=== PATIENT | female | born 1995 | race African-American/Black ===

== ENCOUNTER 2018-06-09 12:35 | Emergency (ER) | payer SELFPAY ==
[2018-06-09 13:14] VITALS: BP 124/71
[2018-06-09 15:16] LABS: APPEARANCE,URINE SLIGHTLY-CLOUDY; BILIRUBIN,URINE NEGATIVE (NEGATIVE); COLOR,URINE YELLOW; GLUCOSE, URINE NEGATIVE (NEGATIVE); KETONES,URINE NEGATIVE (NEGATIVE); LEUKOCYTE ESTERASE,URINE NEGATIVE (NEGATIVE); NITRITE,URINE NEGATIVE (NEGATIVE); PROTEIN,URINE NEGATIVE (NEGATIVE); URINE SPECIFIC GRAVITY 1.017; UROBILINOGEN,URINE NEGATIVE mg/dL (<2.0)
[2018-06-09 16:42] LABS: ABSOLUTE EOSINOPHILS # (AUTO) 0.1 10^3/uL (0.0-0.6); ABSOLUTE MONOCYTES (AUTO) 0.4 10^3/uL (0.1-1.4); ABSOLUTE NEUT (AUTO) 2.7 10^3/uL (1.7-8.2); BASOPHILS % (AUTO) 0.5 % (0-2); EOSINOPHILS % (AUTO) 2.4 % (0-6); HEMATOCRIT 40.2 % (36.0-47.0); HEMOGLOBIN 12.9 g/dL (12.0-15.5); MEAN CORPUSCULAR HEMOGLOBIN 26.2 pg (27.0-33.4); MEAN CORPUSCULAR HGB CONC 32.2 g/dL (32.0-36.0); MEAN CORPUSCULAR VOLUME 81 fl (80-97); PLATELET COUNT 179 10^3/uL (150-450); RED BLOOD COUNT 4.94 10^6/uL (3.72-5.28); RED CELL DISTRIBUTION WIDTH 13.9 % (11.5-14.0); SEGMENTED NEUTROPHILS % (AUTO) 52.1 % (42-78); TOTAL CELLS COUNTED % (AUTO) 100 %; WHITE BLOOD COUNT 5.2 10^3/uL (4.0-10.5)
--- NOTE | 2018-06-09 17:41 | ER Document Report ---
ED General - General Chief Complaint: Vaginal Bleeding Stated Complaint: VAGINAL BLEEDING Time Seen by Provider: 06/09/18 14:59 TRAVEL OUTSIDE OF THE [place] IN LAST 30 DAYS: No - HPI Patient complains to provider of: Present bleeding abdominal cramping Notes: patient with Vannessa coming in for vaginal bleeding abdominal cramping unaware of the pharyngeal status states that her eczema has been inFor approximately 4 years. Denies any fevers chills nausea vomiting diarrhea. - Related Data Allergies/Adverse Reactions: No Known Allergies Allergy (Verified 06/09/18 13:09) Past Medical History - Social History Smoking Status: Never Smoker Chew tobacco use (# tins/day): No Frequency of alcohol use: None Drug Abuse: None Family History: Reviewed & Not Pertinent Patient has suicidal ideation: No Patient has homicidal ideation: No Renal/ Medical History: Denies: Hx Peritoneal Dialysis Review of Systems - Review of Systems Constitutional: No symptoms reported EENT: No symptoms reported Cardiovascular: No symptoms reported Respiratory: No symptoms reported Gastrointestinal: Abdominal pain Genitourinary: No symptoms reported Female Genitourinary: Vaginal bleeding Musculoskeletal: No symptoms reported Skin: No symptoms reported Hematologic/Lymphatic: No symptoms reported Neurological/Psychological: No symptoms reported -: Yes All other systems reviewed and negative Physical Exam - Vital signs Vitals: Temp Pulse Resp BP Pulse Ox 99 F 79 18 124/71 100 06/09/18 13:09 06/09/18 13:09 06/09/18 13:09 06/09/18 13:09 06/09/18 13:09 Interpretation: Normal - General General appearance: Appears well, Alert - HEENT Head: Normocephalic, Atraumatic Eyes: Normal Pupils: PERRL - Respiratory Respiratory status: No respiratory distress Chest status: Nontender Breath sounds: Normal Chest palpation: Normal - Cardiovascular Rhythm: Regular Heart sounds: Normal auscultation Murmur: No - Abdominal Inspection: Normal Distension: No distension Bowel sounds: Normal Tenderness: Nontender Organomegaly: No organomegaly - Back Back: Normal, Nontender - Extremities General upper extremity: Normal inspection, Nontender, Normal color, Normal ROM , Normal temperature General lower extremity: Normal inspection, Nontender, Normal color, Normal ROM , Normal temperature, Normal weight bearing. No: Goyo's sign - Neurological Neuro grossly intact: Yes Cognition: Normal Orientation: AAOx4 [place] Coma Scale Eye Opening: Spontaneous [place] Coma Scale Verbal: Oriented Katt Coma Scale Motor: Obeys Commands [place] Coma Scale Total: 15 Speech: Normal Motor strength normal: LUE, RUE, LLE, RLE Sensory: Normal - Psychological Associated symptoms: Normal affect, Normal mood - Skin Skin Temperature: Warm Skin Moisture: Dry Skin Color: Normal Course - Re-evaluation Re-evalutation: 06/09/18 20:41 The patient presents with abdominal pain without signs of peritonitis or other life-threatening or serious etiology. The patient appears stable for discharge and has been instructed to return immediately if the symptoms worsen in any way , or in 8-12hr if not improved for re-evaluation. The patient has been instructed to return if the symptoms worsen or change in any way. - Vital Signs Vital signs: Temp Pulse Resp BP Pulse Ox 99 F 79 18 124/71 100 06/09/18 13:09 06/09/18 13:09 06/09/18 13:09 06/09/18 13:09 06/09/18 13:09 - Laboratory Result Diagrams: 06/09/18 15:49 Laboratory results interpreted by me: 06/09/18 06/09/18 12:40 15:49 MCH 26.2 L Urine Blood MODERATE H Discharge - Discharge Clinical Impression: Dysfunctional uterine bleeding Condition: Good Disposition: HOME, SELF-CARE Instructions: Dysfunctional Uterine Bleeding ([facility]) Additional Instructions: Your laboratory values today do not show any signs of significant anemia requiring any blood transfusions. There is no signs that you are . Please follow-up with your [employer]CR[employer] SUPERINTENDENT for further evaluation. Return to ER if any symptoms worsen. Forms: Return to Work Referrals: TURNER ALBERT PA [Primary Care Provider] - Follow up as needed
== END 2018-06-09 17:43 | disposition home or self-care (01) ==
LOC: ER 12:35
DX: N93.8 Other specified abnormal uterine and vaginal bleeding (principal); R10.9 Unspecified abdominal pain; Z97.5 Presence of (intrauterine) contraceptive device
CPT/HCPCS: 36415; 81001; 84702; 85025; 99284

== ENCOUNTER 2019-12-28 11:02 | Outpatient (CLI) | payer OTHER ==
--- NOTE | 2019-12-28 13:10 | Non Stress Test Report ---
Non Stress Test Datetime Report Generated by CPN: 12/28/2019 13:10 DEMOGRAPHIC EGA NST: 34.4 INDICATION Indication for Study (NST) Other: KIDNEY ANOMALY VITAL SIGNS Temperature - NST: 97.8 Pulse - NST: 73 RESP - NST: 18 NBPSYS NST: 110 NBPDIA NST: 72 MONITORING Monitor Explained: Monitor Explained; Test Explained; Patient Verbalized Understanding Time on Monitor: 12/28/2019 11:14 Time off Monitor: 12/28/2019 12:43 NST Duration: 89 NST INTERVENTIONS NST Interventions: PO Hydration; Reposition Patient Physician Notified NST: K CALZADA CNM BABY A: [id number] BABY A Movement : Present Contraction Frequency : OCC WITH IRRITABILITY FHR Baseline : 135 Accelerations : 15X15 Decelerations : None Variability : Moderate 6-25bpm NST Review: Meets Criteria for Reactive NST NST Review and Verified By : Devon Martinez RN NST Results: Reactive NST REPORT Report Trigger: Send Report
== END 2019-12-28 12:50 | disposition home or self-care (01) ==
LOC: LC 11:02
PROVIDERS: ATTEND Student in an Organized Health Care Education/Training Program
PROC: 4A1HXCZ Monitoring of Products of Conception, Cardiac Rate, External Approach (ICD-10-PCS; principal; 2019-12-28)
DX: O35.8XX0 Maternal care for other (suspected) fetal abnormality and damage, not applicable or unspecified (principal); Z3A.34 34 weeks gestation of pregnancy
CPT/HCPCS: 59025

== ENCOUNTER 2020-01-07 11:53 | Outpatient (CLI) | payer OTHER ==
--- NOTE | 2020-01-07 12:59 | Non Stress Test Report ---
Non Stress Test Datetime Report Generated by CPN: 01/07/2020 12:59 DEMOGRAPHIC Test Number: 3 EGA NST: 36.0 INDICATION Indication for Study (NST) Other: NR NST in office VITAL SIGNS Temperature - NST: 98.3 Pulse - NST: 73 RESP - NST: 16 NBPSYS NST: 103 NBPDIA NST: 60 MONITORING Monitor Explained: Monitor Explained; Test Explained; Patient Verbalized Understanding Time on Monitor: 01/07/2020 12:17 Time off Monitor: 01/07/2020 12:54 NST Duration: 37 NST INTERVENTIONS NST Interventions: PO Hydration BABY A: [id number] BABY A Movement : Present Contraction Frequency : 3-5 FHR Baseline : 130 Accelerations : 15X15 Decelerations : None Variability : Moderate 6-25bpm NST Review: Meets Criteria for Reactive NST NST Review and Verified By : B Baidy RN NST Results: Reactive NST COMMENTS NST Comments: pt does not feel uc SVE closed thick and high Pt instructed on kick counts and labor precautions. Voices understanding. NST REPORT Report Trigger: Send Report
== END 2020-01-07 12:55 | disposition home or self-care (01) ==
LOC: LC 11:53
PROVIDERS: ATTEND Obstetrics & Gynecology
PROC: 4A1HXCZ Monitoring of Products of Conception, Cardiac Rate, External Approach (ICD-10-PCS; principal; 2020-01-07)
DX: O47.03 False labor before 37 completed weeks of gestation, third trimester (principal); Z3A.36 36 weeks gestation of pregnancy
CPT/HCPCS: 59025

== ENCOUNTER 2020-01-26 08:13 | Inpatient (IN) | payer OTHER ==
[2020-01-26] MEDS ORDERED: PENICILLIN G-K 5 MILLION UNIT VIAL ONE (08:51)
[2020-01-26] MEDS ORDERED: PENICILLIN G POTASSIUM 5,000,000 UNIT in DEXTROSE 5%-WATER 100 ML IV ONE (08:51)
[2020-01-26] MEDS ORDERED: RINGERS SOLUTION,LACTATED 1,000 ML IV PRN (08:56)
[2020-01-26] MEDS: RINGERS SOLUTION,LACTATED 1,000 ML IV PRN ×2 (08:56→13:04)
[2020-01-26] MEDS ORDERED: ONDANSETRON HCL INJ/PF 4 MG/2 ML SDV IV ONE ×2 (09:00→18:00)
[2020-01-26] MEDS ORDERED: MISOPROSTOL 0.2 MG TABLET ONE (09:07)
[2020-01-26] MEDS ORDERED: LIDOCAINE 1% INJ-PF (10 MG/ML) 30 ML SDV ONE (09:07)
[2020-01-26] MEDS ORDERED: ONDANSETRON HCL INJ/PF 4 MG/2 ML SDV ONE ×2 (09:07→17:56)
[2020-01-26] MEDS ORDERED: OXYTOCIN 10 UNIT/ML VIAL ONE (09:07)
[2020-01-26] MEDS ORDERED: OXYTOCIN/NORMAL SALINE 20 UNIT/1,000 ML RTUINJ ONE (09:08)
--- NOTE | 2020-01-26 09:29 | Admission Physical ---
Datetime Report Generated by CPN: 01/26/2020 09:29 CURRENT ADMISSION Chief Complaint: Uterine Contractions Chief Complaint Other: 24 yo G1 at 38.5 wks with complicated by baby with right echogenic polycystic kidney and left kidney malrotated, hydronephrotic and large. She noted contractions last night at 10 pm. Began less frequent but have become much more painful and closer over night through this am. Good FM, No VB or LOF Admit Impression : Active Labor; Intact Membranes Admit Plan: Admit to Unit; Initiate Labor Protocol ALLERGIES Medication Allergies: No Medication Allergies: No Known Allergies (12/28/2019) Latex: No Latex Allergies Food Allergies: NONE Environmental Allergies: NONE OBSTETRICAL HISTORY EDC: 02/04/2020 00:00 : 1 Para: 0 Term: 0 : 0 SAB: 0 IAB: 0 Ectopic: 0 Livin Cesareans: 0 VBACs: 0 Multiple Births: 0 PHYSICAL EXAM General: Normal HEENT: Normal Neurologic: Normal Thyroid: Normal Heart: Normal Lungs: Normal Breast: Normal Back: Normal Abdomen: Normal Genitourinary Exam: Normal Extremities: Normal DTRs: Normal Pelvic Type: Adequate Vital Signs: Reviewed VAGINAL EXAM Dilatation: 4 Effacement: 100 Station: 0 Contraction Comments: contractions every 3-4 minutes MEMBRANES Membranes: Bulging FETUS A EGA: 38.5 Monitoring: External US FHR- Baseline: 140 Variability: Moderate 6-25bpm Accelerations: 15X15 Decelerations: None Presentation: Vertex Admit Comment: 24 yo G1 at 38.5 wks with complicated by baby with right echogenic polycystic kidney and left kidney malrotated, hydronephrotic and large now in active labor -Admit to LDR, as she is in active labor -She was supposed to delivery at [facility] by IOL on 01/31/2020 d/t above complications with fetus but now is actively laboring . WIll give fluids, begin PCN d/t GBS colonization and if labor not progressing/contractions space out: will attempt transfer. At this point she is actively laboring so she will have to stay here. -GBS +, PCN IV now and repeat Q 4 hrs as above -NPO and IVFs -CEFM and toco -cervix 4/C/0 and membranes bulging -anticipate -financial analyst accountant shared information from [facility] with NICU staff and Dr. Hall INFORMED CONSENT Informed Consent Obtained: Vaginal Delivery; Section Delivery; Vacuum/Forceps Assist; Risks, Benefits and Alternatives Discussed Signature: with User ID: Stacy : with User ID: Stacy
[2020-01-26 09:51] LABS: ABSOLUTE EOSINOPHILS # (AUTO) 0.1 10^3/uL (0.0-0.6); ABSOLUTE LYMPHOCYTES (AUTO) 1.2 10^3/uL (0.5-4.7); ABSOLUTE MONOCYTES (AUTO) 0.5 10^3/uL (0.1-1.4); ABSOLUTE NEUT (AUTO) 7.7 10^3/uL (1.7-8.2); BASOPHILS % (AUTO) 0.3 % (0-2); EOSINOPHILS % (AUTO) 0.6 % (0-6); HEMATOCRIT 38.6 % (36.0-47.0); HEMOGLOBIN 12.5 g/dL (12.0-15.5); LYMPHOCYTES % (AUTO) 12.7 % (13-45); MEAN CORPUSCULAR HEMOGLOBIN 25.7 pg (27.0-33.4); MEAN CORPUSCULAR HGB CONC 32.3 g/dL (32.0-36.0); MEAN CORPUSCULAR VOLUME 79 fl (80-97); MONOCYTES % (AUTO) 5.6 % (3-13); PLATELET COUNT 113 10^3/uL (150-450); RED BLOOD COUNT 4.86 10^6/uL (3.72-5.28); RED CELL DISTRIBUTION WIDTH 15.7 % (11.5-14.0); SEGMENTED NEUTROPHILS % (AUTO) 80.8 % (42-78); TOTAL CELLS COUNTED % (AUTO) 100 %; WHITE BLOOD COUNT 9.6 10^3/uL (4.0-10.5)
[2020-01-26 10:35] LABS: APPEARANCE,URINE SLIGHTLY-CLOUDY; BILIRUBIN,URINE NEGATIVE (NEGATIVE); COLOR,URINE YELLOW; GLUCOSE, URINE NEGATIVE (NEGATIVE); KETONES,URINE TRACE mg/dL (NEGATIVE); LEUKOCYTE ESTERASE,URINE NEGATIVE (NEGATIVE); NITRITE,URINE NEGATIVE (NEGATIVE); PROTEIN,URINE 30 mg/dL (NEGATIVE); URINE SPECIFIC GRAVITY 1.017; UROBILINOGEN,URINE NEGATIVE mg/dL (<2.0)
[2020-01-26] MEDS ORDERED: EPHEDRINE SULFATE INJ 50 MG/1 ML AMPULE ONE (10:46)
[2020-01-26] MEDS ORDERED: FENTANYL CITRATE INJ/PF 100 MCG/2 ML AMPUL ONE (10:46)
[2020-01-26] MEDS ORDERED: PHENYLEPHRINE HCL INJ/PF 10 MG/1 ML SDV ONE (10:46)
[2020-01-26] MEDS ORDERED: FENTANYL/BUPIVACAINE/NS/PF 300 MCG/150 ML RTUINJ EPI ONE (10:47)
[2020-01-26] MEDS ORDERED: BUPIVACAINE HCL 0.25 % INJ/PF (2.5 MG/1 ML) 30 ML VIAL ONE (10:47)
[2020-01-26 10:59] LABS: URINE AMPHETAMINES SCREEN NEGATIVE; URINE BARBITURATES SCREEN NEGATIVE; URINE BENZODIAZEPINES SCREEN NEGATIVE; URINE COCAINE SCREEN NEGATIVE; URINE METHADONE SCREEN NEGATIVE; URINE PHENCYCLIDINE SCREEN NEGATIVE
[2020-01-26 11:05] LABS: URINE MARIJUANA (THC) SCREEN UNCONFIRMED POSITIVE
[2020-01-26] MEDS: PENICILLIN G POTASSIUM 2,500,000 UNIT in DEXTROSE 5%-WATER 50 ML IV SCH ×2 (12:56→17:30)
[2020-01-26] MEDS ORDERED: DIPHENHYDRAMINE HCL 50 MG/ML VIAL ONE (17:56)
[2020-01-26] MEDS ORDERED: DIPHENHYDRAMINE HCL 50 MG/ML VIAL IV ONE (18:00)
[2020-01-26] MEDS ORDERED: NA PHOS,M-B/NA PHOS,DI-BA (ADULT) 133 ML ENEMA PR PRN (19:37)
[2020-01-26] MEDS ORDERED: PSEUDOEPHEDRINE HCL 30 MG TABLET PO PRN (19:37)
[2020-01-26] MEDS ORDERED: ACETAMINOPHEN 650 MG SUPP.RECT PR PRN (19:37)
[2020-01-26] MEDS ORDERED: PROMETHAZINE HCL 25 MG TABLET PO PRN (19:37)
[2020-01-26] MEDS ORDERED: BENZOCAINE/MENTHOL AEROSOL SPRAY 56 ML TOP PRN (19:37)
[2020-01-26] MEDS ORDERED: MAGNESIUM HYDROXIDE SUSP 30 ML UDCUP PO PRN (19:37)
[2020-01-26] MEDS ORDERED: PROMETHAZINE HCL 25 MG SUPP.RECT PR PRN (19:37)
[2020-01-26] MEDS ORDERED: GLYCERIN/WITCH HAZEL LEAF 1 EACH MED..WIPE TP PRN (19:37)
[2020-01-26] MEDS ORDERED: PROMETHAZINE HCL INJ 25 MG/1 ML VIAL IV PRN (19:37)
[2020-01-26] MEDS ORDERED: MEASLES,MUMPS&RUBELLA VACC/PF 0.5 ML VIAL SUBCUT PRN (19:37)
[2020-01-26] MEDS ORDERED: OXYTOCIN/NORMAL SALINE 20 UNIT/1,000 ML RTUINJ IV PRN (19:37)
[2020-01-26] MEDS ORDERED: ACETAMINOPHEN WITH CODEINE #3 TABLET PO PRN ×2 (19:37)
[2020-01-26] MEDS ORDERED: ZOLPIDEM TARTRATE 5 MG TABLET PO PRN (19:37)
[2020-01-26] MEDS ORDERED: DIPHENHYDRAMINE HCL 25 MG CAPSULE PO PRN (19:37)
[2020-01-26] MEDS ORDERED: DIPH/PERTUSS(ACELL)/TETANUS VAC/PF 0.5 ML SYR (>=10YO) IM PRN (19:37)
[2020-01-26] MEDS ORDERED: DIBUCAINE 1% OINTMENT 28 GM TP PRN (19:37)
--- NOTE | 2020-01-26 20:42 | Delivery Summary ---
Del Sum A-C Datetime Report Generated by CPN: 01/26/2020 20:41 DELIVERY PERSONNEL DELIVERY PERSONNEL: [id number] Delivery Doctor:: Isabela Shaffer MD Labor and Delivery Nurse:: Dolores Dunham RNperipheral edp equipment operator Nurse:: ALIS Rhodes Nursery Nurse:: Sarah Tong RN Tin Dipper/COMFORT ADVISOR: Catie Jo, ST Additional Personnel: : Maday Noel RN MATERNAL INFORMATION Delivery Anesthesia: Epidural Medications After Delivery: Pitocin Drip 20 Units/1000ml NSS Meds After Delivery Comment: 20 units in 1000mls NS open bolus Maternal Complications: None Provider Comments: Called to patients room with her completely dilated, +3 station. Pushed through one contraction and head delivered. Posterior left hand could be felt near shoulder and anterior shoulder was delayed in delivery. After Edgar and suprapubic pressure, the anterior shoulder and then posterior shoulder delivered. Rest of the body followed easily. Infant vigorous and cord clamping delayed for 30 seconds. After cord doubly clamped and cut, the male infant was placed skin to skin with Mother. Both mother and infant stable. did urinate a large amount after delivery. LABOR SUMMARY EDC: 02/04/2020 00:00 No. Babies in Womb: 1 Labor Anesthesia: Epidural LABOR INFORMATION Reason for Induction: Not Applicable Onset of Labor: 01/26/2020 11:00 Complete Dilatation: 01/26/2020 18:49 Oxytocin: N/A Group B Beta Strep: positive Antibiotics # of Doses: 3 Antibiotics Time of Last Dose: 1729 Name of Antibiotic Given: penicillin Steroids Given: None Reason Steroids Not Administered: Not Applicable MEMBRANES Membranes Rupture Method: Spontaneous Rupture of Membranes: 01/26/2020 15:44 Length of Rupture (hr): 3.40 Amniotic Fluid Color: Clear Amniotic Fluid Amount: Moderate Amniotic Fluid Odor: Normal STAGES OF LABOR Stage 1 hr: 7 Stage 1 min: 49 Stage 2 hr: 0 Stage 2 min: 19 Stage 3 hr: 0 Stage 3 min: 5 Total Time in Labor hr: 8 Total Time in Labor min: 13 VAGINAL DELIVERY Episiotomy: None Laceration #1: Perineal Laceration Extension #1: First Degree Other Laceration: bilateral labial <1cm but bleeding. Laceration Repair: Yes Laceration Repair Note: Repaired in running fashion all lacerations with 3-0 chromic Sponge Count Correct: Yes Sharps Count Correct: Yes CSECTION DELIVERY Primary Indication: N/A Secondary Indication: N/A CSection Incidence: N/A Labor: N/A Elective: N/A CSection Incision: N/A BABY A INFORMATION Infant Delivery Date/Time: 01/26/2020 19:08 Method of Delivery: Vaginal Nurse Controlled Delivery: No Born in Route : No : N/A Forceps: N/A Vacuum Extraction: N/A Shoulder Dystocia : Yes SHOULDER DYSTOCIA BABY A Delivery of Head: 01/26/2020 19:07 Time Head to Delivery : 1.0 1st Intervention to Resolve: Gentle Attempt at Traction, Assisted by Maternal Expulsive Efforts 2nd Intervention to Resolve: McRobert's Maneuver 3rd Intervention to Resolve: Suprapubic Pressure Verify NO Fundal Pressure: No Fundal Pressure Applied Arm Under Symphisis at Del: Right Shoulder Dystocia Comments: 53 seconds PRESENTATION/POSITION BABY A Presentation: Cephalic Cephalic Presentation: Vertex Vertex Position: Left Occipital Anterior Breech Presentation: N/A PLACENTA INFORMATION BABY A Placenta Delivery Time : 01/26/2020 19:13 Placenta Method of Delivery: Spontaneous Placenta Status: Delivered SCORES BABY A Heart Rate 1 min: >100 bpm Resp Effort 1 min: Good Cry Reflex Irritability 1 min: Cough or Sneeze or Pulls Away Muscle Tone 1 min: Active Motion Color 1 min: Body [place], Extremities Blue Resuscitation Effort 1 min: Tactile Stimulation SCORE 1 MIN: 9 Heart Rate 5 min: >100 bpm Resp Effort 5 min: Good Cry Reflex Irritability 5 min: Cough or Sneeze or Pulls Away Muscle Tone 5 min: Active Motion Color 5 min: Body [place], Extremities Blue Resuscitation Effort 5 min: Tactile Stimulation SCORE 5 MIN: 9 INFANT INFORMATION BABY A Gestational Age at Delivery: 38.5 Gestational Status: Early Term- 37- 38.6 Weeks Infant Outcome : Liveborn Infant Condition : Stable Sex: Male IDENTIFICATION BABY A Verification Date/Time: 01/26/2020 20:24 ID Band Number: [id number] Mother's Name Verified: Yes Infant RN Verifying Infant: Brian Barnes, RN and CVanessa Monteiro, RN WEIGHT/LENGTH BABY A Infant Birthweight (gm): 2919 Weight (lb): 6 Weight (oz): 7 Infant Length (in): 19.00 Length (cm): 48.26 CORD INFORMATION BABY A No. Cord Vessels: 3 Nuchal Cord : N/A Cord Blood Taken: Yes-For Storage (Mom's Blood type +) Infant Suction: Mouth; Nose ASSESSMENT BABY A Infant Complications: Shoulder Dystocia Physical Findings at Delivery: Within Normal Limits Infant Respirations: Appears Normal Skin to Skin: Yes Skin to Skin Time (min): 30 Flume Ride Operator/ALS Called : No Infant Care By: Erika Tong RN Transferred To: [facility] BABY B INFORMATION : N/A SIGNATURES Signature: with User ID: Stacy : with User ID: Stacy
--- NOTE | 2020-01-26 20:55 | Warning Signs in Babies ---
VOD Warning Signs Datetime Report Generated by [facility]: 01/26/2020 20:55 VOD#608 -Warning Signs in Babies: Viewed with Parent(s)/Family (01/26/2020 20:45:Janice Monteiro RN)
[2020-01-26] MEDS: IBUPROFEN 800 MG TABLET PO SCH (21:54)
[2020-01-26] MEDS: FAMOTIDINE 20 MG TABLET PO SCH (21:54)
[2020-01-27] MEDS: IBUPROFEN 800 MG TABLET PO SCH ×3 (05:03→21:18)
[2020-01-27 06:52] LABS: HEMATOCRIT 30.7 % (36.0-47.0); HEMOGLOBIN 10.1 g/dL (12.0-15.5); MEAN CORPUSCULAR HEMOGLOBIN 25.8 pg (27.0-33.4); MEAN CORPUSCULAR HGB CONC 32.8 g/dL (32.0-36.0); MEAN CORPUSCULAR VOLUME 79 fl (80-97); PLATELET COUNT 101 10^3/uL (150-450); RED CELL DISTRIBUTION WIDTH 15.2 % (11.5-14.0); WHITE BLOOD COUNT 15.5 10^3/uL (4.0-10.5)
[2020-01-27] MEDS: SENNOSIDES/DOCUSATE 8.6-50 MG 1 EACH TABLET PO SCH (09:20)
[2020-01-27] MEDS: FERROUS SULFATE 325 MG TABLET PO SCH ×2 (09:20→17:29)
[2020-01-27] MEDS: PRENATAL VITAMIN W DHA CAPSULE PO SCH (09:21)
[2020-01-27] MEDS: DOCUSATE SODIUM 100 MG CAPSULE PO SCH ×2 (09:21→17:29)
[2020-01-27] MEDS: FAMOTIDINE 20 MG TABLET PO SCH ×2 (09:21→21:19)
--- NOTE | 2020-01-27 09:57 | PDOC PROGRESS REPORT ---
Subjective-OB Progress Note for:: 01/27/20 - PP Day #1, doing well, UOB, voiding, A+, rubella immune, Physical Exam (OB) Vital Signs: Temp Pulse Resp BP Pulse Ox 97.7 F 66 16 122/64 100 01/27/20 07:27 01/27/20 07:27 01/27/20 07:27 01/27/20 07:27 01/27/20 07:27 Intake & Output 01/26/20 01/27/20 01/28/20 06:59 06:59 06:59 Intake Total 1000 400 Balance 1000 400 Weight 69.8 kg - General General Appearance: Appears well, Alert - Lochia Lochia Amount: Small 10-25 ml Lochia Color: Rubra/Red - Abdomen Description: Soft Hernia Present: No Fundal Description: Firm, Midline Fundal Height: u/u - u/2 - Respiratory Respiratory Status: No respiratory distress - Abdominal Distension: No distension Tenderness: Nontender - Genitourinary Genitourinary Note: voiding - Extremities Upper extremity: Normal inspection Lower extremities: Normal inspection - Neurological Cognition: Normal Orientation: AAOx4 - Psychological Associated symptoms: Normal affect, Normal mood Objective-Diagnostic Laboratory: 01/27/20 06:35 01/26/20 01/26/20 01/26/20 09:13 09:13 09:40 WBC 9.6 RBC 4.86 Hgb 12.5 Hct 38.6 MCV 79 L MCH 25.7 L MCHC 32.3 RDW 15.7 H Plt Count 113 L Seg Neutrophils % 80.8 H Urine Color YELLOW Urine Appearance SLIGHTLY-CLOUDY Urine pH 7.0 Ur Specific [place] 1.017 Urine Protein 30 H Urine Glucose (UA) NEGATIVE Urine Ketones TRACE H Urine Blood NEGATIVE Urine Nitrite NEGATIVE Ur Leukocyte Esterase NEGATIVE Blood Type A POSITIVE Antibody Screen NEGATIVE 01/27/20 06:35 WBC 15.5 H RBC 3.90 Hgb 10.1 L D Hct 30.7 L MCV 79 L MCH 25.8 L MCHC 32.8 RDW 15.2 H Plt Count 101 L Seg Neutrophils % Urine Color Urine Appearance Urine pH Ur Specific [place] Urine Protein Urine Glucose (UA) Urine Ketones Urine Blood Urine Nitrite Ur Leukocyte Esterase Blood Type Antibody Screen Assessment and Plan(PN) - Assessment and Plan (1) (normal spontaneous vaginal delivery) Is this a current diagnosis for this admission?: Yes (2) GBS (group B Streptococcus carrier), +RV culture, currently Is this a current diagnosis for this admission?: Yes - Time Spent with Patient Time with patient: Less than 15 minutes Medications reviewed and adjusted accordingly: Yes - Disposition Anticipated Discharge: Home Within: within 24 hours
[2020-01-28] MEDS: IBUPROFEN 800 MG TABLET PO SCH ×2 (05:28→13:32)
--- NOTE | 2020-01-28 09:12 | PDOC PROGRESS REPORT ---
Subjective-OB Progress Note for:: 01/28/20 Subjective: Doing well, no c/o, ready to go home, voiding, Physical Exam (OB) Vital Signs: Temp Pulse Resp BP Pulse Ox 97.7 F 60 18 125/76 100 01/28/20 07:27 01/28/20 07:27 01/28/20 07:27 01/28/20 07:27 01/28/20 07:27 Intake & Output 01/27/20 01/28/20 01/29/20 06:59 06:59 06:59 Intake Total 1000 750 Balance 1000 750 Weight 69.8 kg - PIH/Pre-Eclampsia DTR's: 2 + Clonus: Negative Headache: Absent Epigastric Pain: No Visual Changes: No - Lochia Lochia Amount: Scant < 10 ml Lochia Color: Rubra/Red - Abdomen Description: Soft Hernia Present: No Fundal Description: Firm, Midline Fundal Height: u/u - u/2 Objective-Diagnostic Laboratory: 01/27/20 06:35 Assessment and Plan(PN) - Assessment and Plan (1) (normal spontaneous vaginal delivery) Is this a current diagnosis for this admission?: Yes (2) GBS (group B Streptococcus carrier), +RV culture, currently Is this a current diagnosis for this admission?: Yes (3) Qualifiers: Weeks of gestation: 38 weeks Qualified Code(s): Z3A.38 - 38 weeks gestation of Is this a current diagnosis for this admission?: Yes - Time Spent with Patient Time with patient: Less than 15 minutes Medications reviewed and adjusted accordingly: Yes - Disposition Anticipated Discharge: Home Within: within 24 hours
[2020-01-28] MEDS: FERROUS SULFATE 325 MG TABLET PO SCH ×2 (09:14→19:09)
[2020-01-28] MEDS: SENNOSIDES/DOCUSATE 8.6-50 MG 1 EACH TABLET PO SCH (09:14)
[2020-01-28] MEDS: PRENATAL VITAMIN W DHA CAPSULE PO SCH (09:14)
[2020-01-28] MEDS: FAMOTIDINE 20 MG TABLET PO SCH (09:14)
[2020-01-28] MEDS: DOCUSATE SODIUM 100 MG CAPSULE PO SCH ×2 (09:15→19:09)
--- NOTE | 2020-01-28 09:18 | PDOC DISCHARGE SUMMARY ---
Impression - Admit/DC Date/PCP Admission Date/Primary Care Provider: 01/26/20 08:59 Discharge Date: 01/28/20 - Discharge Diagnosis (1) (normal spontaneous vaginal delivery) Is this a current diagnosis for this admission?: Yes (2) GBS (group B Streptococcus carrier), +RV culture, currently Is this a current diagnosis for this admission?: Yes (3) Is this a current diagnosis for this admission?: Yes - Additional Information Resuscitation Status: Full Code Discharge Diet: As Tolerated, Regular Discharge Activity: Activity As Tolerated, Pelvic Rest Referrals: RANJAN DIAMOND MD [ACTIVE STAFF] - (rtc 3-4 weeks) Home Medications: Iron 18 mg PO BID 12/28/19 Vits96/Iron Fum/Folic [ Tablet] 1 each PO DAILY 12/28/19 Omeprazole Magnesium [Prilosec] 10 mg PO DAILY 01/26/20 HPI Gestational Age: 38.5 Reason(s) for Admission: Onset of Labor, Group B Strep Positive Procedures: NST, Ultrasound Intrapartum Procedure(s): Spontaneous Vaginal Delivery Complication(s): Laceration-Labial Laceration-Degree: 1st Hospital Course Hospital Course: routine Results Laboratory Results: WBC 15.5 10^3/uL (4.0-10.5) H 01/27/20 06:35 RBC 3.90 10^6/uL (3.72-5.28) 01/27/20 06:35 Hgb 10.1 g/dL (12.0-15.5) L D 01/27/20 06:35 Hct 30.7 % (36.0-47.0) L 01/27/20 06:35 MCV 79 fl (80-97) L 01/27/20 06:35 MCH 25.8 pg (27.0-33.4) L 01/27/20 06:35 MCHC 32.8 g/dL (32.0-36.0) 01/27/20 06:35 RDW 15.2 % (11.5-14.0) H 01/27/20 06:35 Plt Count 101 10^3/uL (150-450) L 01/27/20 06:35 Lymph % (Auto) 12.7 % (13-45) L 01/26/20 09:13 [place] % (Auto) 5.6 % (3-13) 01/26/20 09:13 Eos % (Auto) 0.6 % (0-6) 01/26/20 09:13 Baso % (Auto) 0.3 % (0-2) 01/26/20 09:13 Absolute Neuts (auto) 7.7 10^3/uL (1.7-8.2) 01/26/20 09:13 Absolute Lymphs (auto) 1.2 10^3/uL (0.5-4.7) 01/26/20 09:13 Absolute Monos (auto) 0.5 10^3/uL (0.1-1.4) 01/26/20 09:13 Absolute Eos (auto) 0.1 10^3/uL (0.0-0.6) 01/26/20 09:13 Absolute Basos (auto) 0.0 10^3/uL (0.0-0.2) 01/26/20 09:13 Seg Neutrophils % 80.8 % (42-78) H 01/26/20 09:13 Urine Color YELLOW 01/26/20 09:40 Urine Appearance SLIGHTLY-CLOUDY 01/26/20 09:40 Urine pH 7.0 (5.0-9.0) 01/26/20 09:40 Ur Specific [place] 1.017 01/26/20 09:40 Urine Protein 30 mg/dL (NEGATIVE) H 01/26/20 09:40 Urine Glucose (UA) NEGATIVE mg/dL (NEGATIVE) 01/26/20 09:40 Urine Ketones TRACE mg/dL (NEGATIVE) H 01/26/20 09:40 Urine Blood NEGATIVE (NEGATIVE) 01/26/20 09:40 Urine Nitrite NEGATIVE (NEGATIVE) 01/26/20 09:40 Urine Bilirubin NEGATIVE (NEGATIVE) 01/26/20 09:40 Urine Urobilinogen NEGATIVE mg/dL (<2.0) 01/26/20 09:40 Ur Leukocyte Esterase NEGATIVE (NEGATIVE) 01/26/20 09:40 Urine Ascorbic Acid NEGATIVE (NEGATIVE) 01/26/20 09:40 Urine Opiates Screen NEGATIVE 01/26/20 09:40 Urine Methadone Screen NEGATIVE 01/26/20 09:40 Ur Barbiturates Screen NEGATIVE 01/26/20 09:40 Ur Phencyclidine Scrn NEGATIVE 01/26/20 09:40 Ur Amphetamines Screen NEGATIVE 01/26/20 09:40 U Benzodiazepines Scrn NEGATIVE 01/26/20 09:40 Urine Cocaine Screen NEGATIVE 01/26/20 09:40 U Marijuana (THC) Screen UNCONFIRMED POSITIVE 01/26/20 09:40 RPR NONREACTIVE (NONREACTIVE) 01/26/20 09:13 Blood Type A POSITIVE 01/26/20 09:13 Antibody Screen NEGATIVE 01/26/20 09:13 Plan Health Concerns: normal pp Plan of Treatment: discharge home with instructions, repeat platelets today Goals: no complications Time Spent: Less than 30 Minutes
[2020-01-28 09:41] LABS: PLATELET COUNT 100 10^3/uL (150-450)
[2020-01-28 10:19] VITALS: BP 135/83
[2020-01-28] MEDS ORDERED: PROMETHAZINE HCL INJ 25 MG/1 ML VIAL IV PRN (15:30)
[2020-01-28] MEDS ORDERED: MEASLES,MUMPS&RUBELLA VACC/PF 0.5 ML VIAL SUBCUT PRN (15:30)
[2020-01-28] MEDS ORDERED: DIPH/PERTUSS(ACELL)/TETANUS VAC/PF 0.5 ML SYR (>=10YO) IM PRN (15:30)
== END 2020-01-28 19:00 | disposition home or self-care (01) | DRG 807 ==
LOC: LC 08:13 → LR 08:59 → 2S 21:00
PROVIDERS: ADMIT Obstetrics & Gynecology; ATTEND Obstetrics & Gynecology
PROC: 10E0XZZ Delivery of Products of Conception, External Approach (ICD-10-PCS; principal; 2020-01-26)
PROC: 0HQ9XZZ Repair Perineum Skin, External Approach (ICD-10-PCS; 2020-01-26)
DX: O99.824 Streptococcus B carrier state complicating childbirth (principal); Z37.0 Single live birth; O70.0 First degree perineal laceration during delivery; Z3A.38 38 weeks gestation of pregnancy; O66.0 Obstructed labor due to shoulder dystocia
CPT/HCPCS: 36415; 80307; 80349; 81005; 85025; 85027; 85049; 86592; 86850; 86900; 86901; 94760; G0480; J1200; J2370; J2405; J2540; J2590; J3010; J3490; J7060